=== PATIENT | female | born 2005 | race African-American/Black ===

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

== ENCOUNTER 2025-01-23 07:30 | Outpatient (RCR) | payer OTHER, SELFPAY | END 2025-05-01 16:19 | disposition home or self-care (01) | PROVIDERS: PCP Nurse Practitioner; Visit Provider Nurse Practitioner Family | DX: M25.561 Pain in right knee (principal); M25.562 Pain in left knee; M54.50 Low back pain, unspecified; Z51.89 Encounter for other specified aftercare | CPT/HCPCS: 97110; 97162 ==